=== PATIENT | female | born 1980 | race Caucasian/White ===

== ENCOUNTER → 2020-02-12 | Outpatient (CLI) | payer OTHER ==
--- NOTE | 2020-02-12 15:05 | RAD ---
Bilateral lower extremity venous doppler ultrasound History: Bilateral lower extremity pain and swelling Comparison: None Findings: Multiple grayscale, color, and duplex spectral analysis sonographic images were acquired of the bilateral lower extremity veins to evaluate for the presence of DVT. There is normal phasicity. Normal compression, color-flow, and augmentation is demonstrated from the bilateral common femoral to the popliteal veins. There is normal color flow of the proximal greater saphenous and profunda femoris veins. There is normal color flow of segments of the calf veins. There are multiple varicosities present in the bilateral calf regions. Reportedly area of lump of the medial mid right calf region corresponds with focus of thrombosis involving a varicosity. There is also evidence of superficial thrombosis involving varicosity in the distal left calf region. Impression: 1. There is no evidence of deep venous thrombosis from the bilateral common femoral to the popliteal veins. 2. There are foci of superficial thrombophlebitis in the calf regions bilaterally. Electronically signed by: Deejay Walls MD (02/12/2020 3:02 PM) [facility]
== END ==
LOC: US 14:00
PROVIDERS: ATTEND Family Medicine
DX: R22.43 Localized swelling, mass and lump, lower limb, bilateral (principal); I80.8 Phlebitis and thrombophlebitis of other sites
CPT/HCPCS: 93970

== ENCOUNTER → 2020-03-01 | Outpatient (CLI) | payer OTHER ==
[~2020-03-01] MED LIST: IOHEXOL 350 MG/ML 100 ML VIAL. IV ONE
--- NOTE | 2020-03-01 14:32 | RAD ---
EXAM: CT Pulmonary Angiogram INDICATION: Reason: PHLEBITIS, THROMBOPHLEBITIS / Spl. Instructions: / History: TECHNIQUE: Multi-detector row images were acquired from the thoracic inlet through the upper abdomen with the use of IV contrast. Sagittal and coronal images were acquired from the transaxial data. MIP images of the pulmonary arteries were obtained. All CT scans performed at this facility utilize dose optimization techniques as appropriate to the exam, including the following: Automated exposure control and adjustment of the mA and/or KV according to patient size (this includes techniques or standardized protocols for targeted exams where dose is indication/reason for exam). IV CONTRAST: Administered COMPARISON: None FINDINGS: PULMONARY ARTERIES: No pulmonary emboli are identified. CARDIOVASCULAR: Unremarkable Aorta is normal caliber. MEDIASTINUM & REJI: No adenopathy or masses. LUNGS: No pulmonary infiltrate, nodule, or other focal abnormality. PLEURAL SPACE: No pleural effusions or pneumothorax. OSSEOUS & SOFT TISSUE: Unremarkable ABDOMEN: The visualized portions of the upper abdomen are unremarkable. IMPRESSION: Normal CT pulmonary angiogram. No evidence of pulmonary emboli or other acute cardiopulmonary process. Electronically signed by: Michele Choudhury MD (03/01/2020 2:29 PM) [id number]
== END ==
LOC: CT 13:44
PROVIDERS: ATTEND Family Medicine
DX: I80.9 Phlebitis and thrombophlebitis of unspecified site (principal)
CPT/HCPCS: 71275; Q9967

== ENCOUNTER 2020-12-03 02:36 | Emergency (ER) | payer BC, OTHER ==
[~2020-12-03] VITALS: Ht 170.2 cm; Wt 99.5 kg
--- NOTE | 2020-12-03 03:11 | PHYS DOC ---
General Adult EDM: Chief Complaint: HYPERTENSION HPI: HPI: 40-year-old female presents with chest pain and concern of elevated blood pressure. The patient had an elevated blood pressure 140/90 about a week ago. She took her pressure today and it was smaller. She thought that this was a little bit high. She was also having mild diaphoresis and some central chest discomfort. The discomfort was a pressure of mild intensity. This was concerning at 2:00 in the morning so she came to the emergency room for evaluation. She has no cardiac history. No lung history. She denies fever or chills. Review of Systems: Review of Systems: Constitutional: Denies fever or chills Eyes: Denies change in visual acuity HENT: Denies nasal congestion or sore throat Respiratory: Denies cough or shortness of breath Cardiovascular: Chest pain GI: Denies abdominal pain, nausea, vomiting, bloody stools or diarrhea : Denies dysuria Musculoskeletal: Denies back pain or joint pain Integument: Denies rash Neurologic: Denies headache, focal weakness or sensory changes Endocrine: Denies polyuria or polydipsia Lymphatic: Denies swollen glands Psychiatric: Denies depression or anxiety Allergies: Allergies: Allergies Uncoded Allergies Type Severity Reaction Last Updated Verified COMPEZINE Allergy Unknown 03/01/20 SULFA Allergy Unknown 03/01/20 Physical Exam: PE: Constitutional: Well developed, well nourished, no acute distress, non-toxic appearance. [] HENT: Normocephalic, atraumatic, bilateral external ears normal, oropharynx moist, no oral exudates, nose normal. [] Eyes: PERRLA, EOMI, conjunctiva normal, no discharge. [] Neck: Normal range of motion, no tenderness, supple, no stridor. [] Cardiovascular:Heart rate regular rhythm, no murmur [] Lungs & Thorax: Bilateral breath sounds clear to auscultation [] Abdomen: Bowel sounds normal, soft, no tenderness, no masses, no pulsatile masses. [] Skin: Warm, dry, no erythema, no rash. [] Back: No tenderness, no CVA tenderness. [] Extremities: No tenderness, no cyanosis, no clubbing, ROM intact, no edema. [] Neurologic: Alert and oriented X 3, normal motor function, normal sensory function, no focal deficits noted. [] Psychologic: Affect normal, judgement normal, mood concerned. [] EKG: EKG: Sinus rhythm, rate 68, normal axis, no ST elevation or depression. [] Radiology/Procedures: Radiology/Procedures: [] Heart Score: C/O Chest Pain: Yes HEART Score for Chest Pain: HEART Score for Chest Pain Response (Comments) Value History Slighlty/Non-Suspicious 0 ECG Normal 0 Age < 45 0 Risk Factors 1 or 2 Risk Factors 1 Troponin < Normal Limit 0 Total 1 Risk Factors: Risk Factors: DM, Current or recent (<one month) smoker, HTN, HLP, family history of CAD, obesity. Risk Scores: Score 0 - 3: 2.5% MACE over next 6 weeks - Discharge Home Score 4 - 6: 20.3% MACE over next 6 weeks - Admit for Clinical Observation Score 7 - 10: 72.7% MACE over next 6 weeks - Early Invasive Strategies Course & Med Decision Making: Course & Med Decision Making Pertinent Labs and Imaging studies reviewed. (See chart for details) The patient's EKG is unremarkable. Chest x-ray is unremarkable. Her labs are unremarkable. Her troponin is negative. Patient's blood pressure is borderline normal. I advised that she follow-up with her primary care physician about this. No further treatment is necessary at this time. She is stable for discharge. [] Dragon Disclaimer: Jefry Disclaimer: This electronic medical record was generated, in whole or in part, using a voice recognition dictation system. Departure Departure: Impression: Primary Impression: Chest pain Qualified Codes: R07.9 - Chest pain, unspecified Disposition: HOME / SELF CARE / HOMELESS Condition: STABLE Referrals: DARIA LAWS MD (PCP) Patient Instructions: Chest Pain (Nonspecific), [id number] BRENDAN DE LA ROSA DO Dec 03, 2020 03:11
[2020-12-03 03:31] LABS: BASO % 1 % (0-3); EOS # 0.1 x10^3/uL (0.0-0.7); EOS % 1 % (0-3); HEMATOCRIT 38.7 % (36.0-47.0); HEMOGLOBIN 13.3 g/dL (12.0-15.5); LYMPH # 2.6 x10^3/uL (1.0-4.8); LYMPH % 27 % (24-48); MEAN CORPUSCULAR HEMOGLOBIN 30 pg (25-35); MEAN CORPUSCULAR HGB CONC 34 g/dL (31-37); MEAN CORPUSCULAR VOLUME 88 fL (79-100); MONO # 0.7 x10^3/uL (0.0-1.1); MONO % 8 % (0-9); NEUT % 63 % (31-73); PLATELET COUNT 202 x10^3/uL (140-400); RED CELL DISTRIBUTION WIDTH 13.2 % (11.5-14.5); WHITE BLOOD COUNT 9.4 x10^3/uL (4.0-11.0)
--- NOTE | 2020-12-03 03:31 | RAD ---
EXAMINATION: Chest radiograph. VIEWS: Single view COMPARISON: CT dated 03/01/2020 INDICATION:40 years, Female, chest pain. FINDINGS: Normal cardiomediastinal silhouette. No focal consolidation. No pleural effusion or pneumothorax. No acute osseous process. IMPRESSION: No acute cardiopulmonary process. Electronically signed by: Liudmila Booker MD (12/03/2020 3:29 AM) [facility]
[2020-12-03 03:37] LABS: CALCIUM 8.3 mg/dL (8.5-10.1); CREATININE 0.8 mg/dL (0.6-1.0); GFR 79.9
[2020-12-03 03:54] LABS: ALBUMIN 3.4 g/dL (3.4-5.0); ALBUMIN/GLOBULIN RATIO 1.2 (1.0-1.7); TOTAL BILIRUBIN 0.8 mg/dL (0.2-1.0); TOTAL PROTEIN 6.3 g/dL (6.4-8.2)
[2020-12-03] MEDS ORDERED: diphenhydrAMINE HCL 25 MG CAPSULE PO ONE ×2 (04:13→05:00)
[2020-12-03] MEDS ORDERED: NAPROXEN 500 MG TABLET ONE (04:14)
[2020-12-03] MEDS ORDERED: METOCLOPRAMIDE 10 MG TABLET ONE (04:15)
[2020-12-03 04:26] VITALS: BP 128/76
[2020-12-03] MEDS ORDERED: NAPROXEN 500 MG TABLET PO ONE (04:30)
[2020-12-03] MEDS ORDERED: METOCLOPRAMIDE 10 MG TABLET PO ONE (04:30)
[2020-12-03] MEDS ORDERED: diphenhydrAMINE 50 MG/ML VIAL IVP ONE (04:30)
--- NOTE | 2020-12-03 06:09 | EKG ---
[address] [address] Test Date: 2020-12-03 Test Time: 03:12:15 Pat Name: ENOC AGGARWAL Department: Room: Gender: F [employer]: : [id number] Requested By: BRENDAN DE LA ROSA Order Number: [id number] Reading MD: Measurements Intervals Pearce Rate: 68 P: 40 UT: 172 QRS: 7 QRSD: 80 T: 9 QT: 372 QTc: 400 Interpretive Statements SINUS RHYTHM NORMAL ECG RI6.02 No previous ECG available for comparison
== END 2020-12-03 04:26 | disposition home or self-care (01) ==
LOC: ER 02:36
DX: R07.89 Other chest pain (principal); I10 Essential (primary) hypertension
CPT/HCPCS: 36415; 71045; 80053; 84484; 85025; 93005; 99285; Q0163